=== PATIENT | male | born 1995 ===

== ENCOUNTER 2022-05-17 16:39 | Emergency (ER) | payer MEDICAID ==
[~2022-05-17] VITALS: Ht 188 cm; Wt 118.0 kg
[2022-05-17] MEDS ORDERED: SODIUM CHLORIDE 0.9% 1,000 ML IV ONE (17:45)
[2022-05-17 18:33] LABS: BASOPHILS % 0.1 % (0.0-2.0); EOSINOPHILS % 0.2 % (0.0-5.0); HEMATOCRIT. 41.8 % (42.0-52.0); LYMPHOCYTES % 11.4 % (20.0-50.0); MEAN CORPUSCULAR HEMOGLOBIN 30.1 pg (28.0-32.0); MEAN PLATELET VOLUME 8.7 fl (7.4-10.4); MONOCYTES % 6.6 % (2.0-8.0); NEUTROPHILS % 81.7 % (40.0-76.0); PLATELET 179 x1000/uL (130-400); RED BLOOD CELL COUNT 4.65 mill/uL (4.7-6.1); RED CELL DISTRIBUTION WIDTH 13.8 % (11.6-14.6)
[2022-05-17 18:47] LABS: CHLORIDE 105 mEq/L (98-107)
[2022-05-17 18:56] LABS: ETHANOL BLOOD < 10 mg/dL
[2022-05-17 21:12] VITALS: BP 125/87
== END 2022-05-17 21:20 | disposition home or self-care (01) ==
LOC: ER 16:39
DX: T40.601A Poisoning by unspecified narcotics, accidental (unintentional), initial encounter (principal); Y92.9 Unspecified place or not applicable; I49.8 Other specified cardiac arrhythmias
CPT/HCPCS: 36415; 80053; 80320; 85025; 93005; 96360; 99284; J7030; G0480